=== PATIENT | male | born 1935 | race African-American/Black ===

== ENCOUNTER 2020-06-28 06:51 | Outpatient (CLI) | payer MEDICARE | END 2020-06-28 06:52 | disposition home or self-care (01) | LOC: LABBT 06:51 | PROVIDERS: ATTEND Orthopaedic Surgery | DX: Z01.818 Encounter for other preprocedural examination (principal); M16.12 Unilateral primary osteoarthritis, left hip | CPT/HCPCS: 80048; 81001; 85025; 85610; 86850; 86900; 86901; 87635; 93005; 93010; U0003 ==

== ENCOUNTER 2020-06-28 14:00 | Inpatient (IN) | payer OTHER ==
[2020-06-28 17:30] LABS: Anion Gap 13 mmol/L (10-20); BUN (Urea Nitrogen) 17 mg/dL (8.4-25.7); Calc. Creatinine Clearance 0 mL/min (70-130); Calcium 9.3 mg/dL (7.8-10.44); Carbon Dioxide 28 mmol/L (23-31); Chloride 105 mmol/L (98-107); Glucose 110 mg/dL (83-110); Potassium 4.1 mmol/L (3.5-5.1); Sodium 142 mmol/L (136-145)
[2020-06-28 17:42] LABS: Clarity Clear (Clear); Leukocyte 25 (Negative); Nitrite Negative (Negative); Specific Gravity, Urine 1.015 (1.002-1.036)
[2020-06-28 17:43] LABS: Bilirubin Negative (Negative); Blood, Urine Negative (Negative); Glucose, Urine (Dipstick) Normal (Negative); Ketone, Urine Negative (Negative); Protein, Urine (Dipstick) 30 mg/dl (Neg-Trace); Urobilinogen Normal mg/dL (Less than 2)
[2020-06-28 17:46] LABS: RBC/HPF 0-3 HPF (0-3)
[2020-06-28 17:49] LABS: Bacteria/HPF Rare-Few HPF (None Seen)
[2020-06-28 19:26] LABS: Prothrombin Time 10.3 sec (9.5-12.1)
[2020-06-28 20:33] LABS: #Eosinphils 0.1 10x3/uL (0.0-0.5); #Monocytes 0.2 10x3/uL (0.0-1.1); #Neutrophils 1.5 10x3/uL (1.5-8.4); %Basophils 0.7 % (0.0-2.0); %Lymphocytes 39.8 % (18.0-47.0); %Monocytes 7.9 % (0.0-10.0); %Neutrophils 49.3 % (40.0-75.0); Hemoglobin 11.9 g/dL (14.0-18.0); Mean Corpuscular HGB CONC 30.8 G/DL (32.0-36.0); Mean Corpuscular Hemoglobin 26.4 PG (27.0-33.0); Mean Corpuscular Volume 85.8 fl (80.0-100.0); Mean Platelet Volume 11.8 fl (7.4-10.4); Platelet Count 154 10x3/uL (130-400); RBC Distribution Width 14.8 % (11.5-14.5)
[2020-06-29 13:15] LABS: SARS-CoV-2 MS2 Positive; SARS-CoV-2 N Gene Negative; SARS-CoV-2 S Gene Negative; SARS-CoV-2 by NAA Not Detected (NotDetected); SARS-CoV-2 orf1ab Negative
--- NOTE | 2020-06-29 13:51 | HP ---
HISTORY OF PRESENT ILLNESS: The patient is an 85-year-old male with a several-day history of progressive pain in the left hip without injury. He has had progressive symptoms despite rest, restriction of activities, use of a cane, and anti-inflammatory medications. His pain is now interfering with day-to-day activities including walking, getting dressed, and sleeping. His surgery was initially scheduled at the [facility] in [place] in March of last year, but it was canceled and he would defer to have further treatment here. PAST HISTORY: 1. History of hypertension. 2. Seasonal allergies. CURRENT MEDICATIONS: Include: 1. Calcium. 2. Multivitamins. 3. Lisinopril. 4. Hydrochlorothiazide. 5. Metoprolol. 6. Potassium. 7. Flomax. 8. Saw [place]. 9. [place] bil[place]. 10. Fish oil. ALLERGIES: HE HAS NO KNOWN ALLERGIES. FAMILY HISTORY: Otherwise unremarkable. SOCIAL HISTORY: Otherwise unremarkable. REVIEW OF SYSTEMS: Otherwise unremarkable. PAST SURGICAL HISTORY: The patient has had previous spine surgery in 2013. PHYSICAL EXAMINATION: GENERAL: A healthy male. HEENT: Unremarkable. NECK: Supple. CHEST: Clear. HEART: Regular rate and rhythm. ABDOMEN: Soft and nontender. RECTAL AND GENITAL: Deferred. EXTREMITIES: Pertinent findings of the left hip. There is no point tenderness. There is a left antalgic gait. There is decreased range of motion of the left hip and groin, pain with internal rotation. Neurovascular exam is intact. Leg lengths were equal. DIAGNOSTIC STUDIES: X-rays of the left hip reveal severe degenerative arthritis with no joint space remaining. There are mild vascular calcifications. There was moderately severe DJD of the right hip. IMPRESSION: 1. Degenerative arthritis of both hips, left greater than right. 2. History of hypertension. PLAN: Left total hip replacement. The nature of the surgery, length of recovery, and potential complications, such as infection, loss of motion, incomplete relief, neurovascular injury, thromboembolic phenomena, leg-length discrepancy, possible transfusion, and possible need for revision have been discussed in detail. Job ID: [id number]
[2020-06-30 13:44] VITALS: BMI 34.2
[2020-07-03] MEDS ORDERED: Vancomycin 1.5 GRAM/300 ML BAG ONE (06:56)
[2020-07-03] MEDS ORDERED: Tranexamic Acid 1,000 MG/10 ML VIAL ONE ×2 (06:56→12:23)
[2020-07-03] MEDS ORDERED: Sodium Chloride 0.9% 100 ML ONE ×2 (06:56→12:20)
[2020-07-03] MEDS ORDERED: Midazolam HCl 2 mg/2 ml Vial ONE (07:54)
[2020-07-03] MEDS ORDERED: Fentanyl 100 MCG/2 ML VIAL ONE ×2 (07:55→09:43)
[2020-07-03] MEDS ORDERED: Hydrocerin (Eucerin) Cream 120 gm Jar TOP PRN (09:00)
[2020-07-03] MEDS ORDERED: Ondansetron PF 4 MG/2 ML Vial IVP PRN ×2 (09:00→12:20)
[2020-07-03] MEDS ORDERED: Promethazine HCl 25 MG SUPP PR PRN (09:00)
[2020-07-03] MEDS ORDERED: HYDROcodone/Acetaminophen 5/325 mg Tablet PO PRN ×2 (09:00)
[2020-07-03] MEDS ORDERED: Bupivacaine 0.25% 10 ML VIAL EPIDURAL PRN (09:00)
[2020-07-03] MEDS ORDERED: diphenhydrAMINE 50 MG/ML VIAL IM PRN (09:00)
[2020-07-03] MEDS ORDERED: diphenhydrAMINE 50 MG/ML VIAL IVP PRN (09:00)
[2020-07-03] MEDS ORDERED: Naloxone HCl 0.4 mg/ml Vial IVP PRN (09:00)
[2020-07-03] MEDS ORDERED: traMADol HCl 50 MG TAB PO PRN ×3 (09:00→12:20)
[2020-07-03] MEDS ORDERED: Promethazine HCl 25 MG/ML VIAL IM PRN ×2 (09:00→12:01)
[2020-07-03] MEDS ORDERED: Zolpidem Tartrate 5 MG TAB PO PRN ×2 (09:00→12:20)
[2020-07-03] MEDS ORDERED: diphenhydrAMINE 25 MG CAP PO PRN ×2 (09:00→12:20)
[2020-07-03] MEDS ORDERED: Naloxone HCl 0.4 mg/ml Vial IV PRN (09:00)
[2020-07-03] MEDS ORDERED: Bupivacaine 0.25% HCL 30 ML VIAL ONE (09:45)
[2020-07-03] MEDS ORDERED: Lidocaine 1.5% w/Epi 1:200K 30 ML VIAL (Epid Use) ONE (09:53)
[2020-07-03] MEDS ORDERED: Rocuronium Bromide 10 MG/ML (10ML VIAL) ONE (09:53)
[2020-07-03] MEDS ORDERED: Dexamethasone 20 MG/5 ML VIAL ONE (09:53)
[2020-07-03] MEDS ORDERED: Lidocaine 1% PF 5 ML VIAL ONE (09:53)
[2020-07-03] MEDS ORDERED: Glycopyrrolate 0.2 MG/ML 5 ML SYRINGE ONE (09:53)
[2020-07-03] MEDS ORDERED: ePHEDrine 50 MG/ML VIAL ONE (09:53)
[2020-07-03] MEDS ORDERED: PROPOFOL 200 MG/20 ML VIAL ONE (09:53)
[2020-07-03] MEDS ORDERED: Labetalol HCl 100 MG/20 ML VIAL ONE (09:53)
[2020-07-03] MEDS ORDERED: Ondansetron PF 4 MG/2 ML Vial ONE (09:53)
[2020-07-03] MEDS ORDERED: Ketorolac Tromethamine 30 MG/ML VIAL IVP SCH (12:00)
[2020-07-03] MEDS ORDERED: Tranexamic Acid 1,000 MG in Sodium Chloride 0.9% 100 ML IVPB SCH ×2 (12:00→12:20)
[2020-07-03] MEDS ORDERED: Ondansetron HCl/PF 4 MG/2 ML Vial IVP PRN (12:01)
[2020-07-03] MEDS ORDERED: Promethazine HCl 25 MG/ML VIAL SLOW IVP PRN ×2 (12:01→12:20)
[2020-07-03] MEDS ORDERED: Fentanyl 100 MCG/2 ML VIAL SLOW IVP PRN ×2 (12:20)
[2020-07-03] MEDS ORDERED: HYDROcodone/Acetaminophen 10/325 mg Tablet PO PRN ×2 (12:20)
[2020-07-03] MEDS ORDERED: Sodium Chloride 0.9% 1,000 ML IV SCH (12:20)
[2020-07-03] MEDS ORDERED: Acetaminophen 325 MG TAB PO PRN (12:20)
--- NOTE | 2020-07-03 13:00 | RAD ---
XR Hip Lt 2-3 View INDICATION: Postop left hip COMPARISON: Prior exam dated June 01, 2020 FINDINGS: Bones: No acute osseous abnormality. Bone mineralization appears within normal limits. Hip joint: Since the comparison examination there is been interval performance of a left total hip ar throplasty. The prosthetic components project in the expected position without gross evidence of complication. There is scattered intra-articular and periarticular soft tissue gas consistent with th e patient's postoperative state SI joints and symphysis pubis: There is mild degenerative change of a left SI joint which is stable. Intrapelvic contents: Visualized bowel gas pattern is within normal limits. Surrounding soft tissues: As above IMPRESSION: 1. Interval left total hip arthroplasty.
[2020-07-03] MEDS ORDERED: Lisinopril 20 MG TAB PO SCH (17:45)
[2020-07-03] MEDS: Ketorolac Tromethamine 30 MG/ML VIAL IVP SCH (17:45)
[2020-07-03] MEDS ORDERED: Hydrochlorothiazide 25 MG TAB PO SCH (17:45)
[2020-07-03] MEDS: CEFAZOLIN 2 GM in Premix Bag 1 BAG IVPB SCH (18:35)
[2020-07-03] MEDS ORDERED: Vancomycin HCl 1.5 GM in Sodium Chloride 0.9% 250 ML 300 ML IVPB SCH (20:00)
[2020-07-03] MEDS: Senokot S 8.6-50 MG TAB PO SCH (20:32)
[2020-07-03] MEDS: Ferrous Gluconate 324 MG TAB PO SCH (20:32)
--- NOTE | 2020-07-03 20:44 | RAD ---
Exam: Chest one view HISTORY:Evaluate for congestive heart failure. Patient requiring oxygen. Comparison: 02/22/2019 FINDINGS: Cardiac silhouette: Normal Aorta: Atherosclerotic Pulmonary vessels: Normal Costophrenic angles: Clear LUNGS: No masses or consolidation. Pneumothorax: None Osseous abnormalities: None IMPRESSION: 1. Atherosclerosis 2. Chronic lung parenchymal changes. No acute cardiopulmonary process
--- NOTE | 2020-07-03 20:57 | CON ---
DATE OF CONSULTATION: 07/03/2020 TIME OF ASSESSMENT: 1899. REASON FOR CONSULTATION: Medical management. CHIEF COMPLAINT: None. HISTORY OF PRESENT ILLNESS: Mr. Reed is an 85-year-old gentleman who was admitted to the hospital for a left total hip replacement which was done earlier today. The patient states his pain is well controlled at the moment. States that there was an issue earlier today due to an elevated blood pressure. He says he has been off his blood pressure medicines for the last 3 days, because he accidentally misinterpreted instructions to hold his medications in preparation for surgery. Denies having any associated headache, vision changes, nausea, or vomiting. Currently, his blood pressure is 201/68. His home medications have been restarted by his primary care team. Currently, he is eating dinner and is tolerating food intake well. He has no complaints at this present time. PAST MEDICAL HISTORY: 1. Hypertension. 2. Seasonal allergies. 3. BPH. 4. Chronic diastolic heart failure. PAST SURGICAL HISTORY: 1. Lumbar surgery in 2013. 2. Status post left total hip replacement done earlier today. SOCIAL HISTORY: The patient reports drinking 3 to 4 times a week. States he will drink 2 or 3 shots of liquor including bourbon or gin. Denies any tobacco use or drug use. FAMILY HISTORY: Noncontributory. ALLERGIES: NO KNOWN DRUG ALLERGIES. CURRENT MEDICATIONS: 1. Aspirin 81 mg p.o. daily. 2. Vitamin D3/calcium carbonate 1 tablet p.o. daily. 3. Proscar 5 mg p.o. daily. 4. Hydrochlorothiazide 25 mg p.o. daily. 5. Lisinopril 20 mg p.o. daily. 6. Metoprolol succinate 25 mg p.o. daily. 7. Potassium chloride 10 mEq p.o. daily. 8. Flomax 0.8 mg p.o. at bedtime. PHYSICAL EXAMINATION: GENERAL: The patient appears well developed, well nourished, is in no acute distress. VITAL SIGNS: Temperature 97.4, HR 51, BP 152/60, RR 20, O2 saturation 95% on 2 L by nasal cannula. HEENT: Normocephalic and atraumatic. Pupils are equal, round, and reactive to light. Sclera icteric. Oropharynx is clear. NECK: Supple. LUNGS: Clear to auscultation bilaterally without any wheezes, rales, or rhonchi. CARDIAC: Regular rate and rhythm. ABDOMEN: Soft, nontender, nondistended. Normoactive bowel sounds present. No guarding or rigidity. No renal angle tenderness. EXTREMITIES: Mechanical SCDs in place. He has +1 pitting edema. NEUROLOGIC: Alert and oriented x3. SKIN: Warm and dry. LABORATORY DATA: Obtained on 06/28/2020. White cell count 3, hemoglobin 11.9, hematocrit 38.6, platelets 154, neutrophils 49.3%. BMP unremarkable. Urinalysis showed 25 leukocyte esterase, 4 to 6 white blood cells, and 4 to 6 epithelial cells, 30 of protein, otherwise negative. COVID testing done on 06/28/2020 was negative. IMAGING DATA: Hip x-ray obtained today, 07/03/2020, showed interval left total hip arthroplasty. IMPRESSION AND PLAN: Mr. Reed is an 85-year-old gentleman who is status post left total hip replacement, who has been referred to us for medical management of the followin. Hypertension. Blood pressure uncontrolled due to missing his antihypertensives for the last 3 days. Home medications have been restarted and we will give hydralazine p.r.n. for systolic blood pressure above 180. The patient is asymptomatic at present. We will obtain repeat laboratory studies including CBC, CMP, BMP, and magnesium. 2. History of diastolic heart failure. Currently has fluids running at 100 an hour, which we will decrease to 65 in light of +1 pitting edema and history of heart failure. We will check BNP with routine labs. Sats 95 on 2 L with no crackles on auscultation, but does have diminished breath sounds bilaterally. We will obtain a baseline chest x-ray. Continue to monitor O2 saturations. 3. BPH. Proscar and Flomax have been restarted. No urinary complaints. 4. Status post left hip replacement. Pain controlled. Continue as per Ortho team. 5. Code status full. 6. Gastrointestinal prophylaxis with famotidine. 7. Deep venous thrombosis prophylaxis with mechanical SCDs. Case discussed with attending who agrees with plan of care as described above. Thank you for this consultation. We will continue to follow this patient with you. Job ID: [id number]
[2020-07-03] MEDS: Tamsulosin HCl 0.4 MG CAP PO SCH (21:01)
[2020-07-03] MEDS: Famotidine 20 MG TAB PO SCH (21:01)
[2020-07-03] MEDS: Aspirin 81 mg Enteric Coated Tablet PO SCH (21:01)
[2020-07-03 22:27] LABS: #Lymphocytes 0.4 thou/uL (1.20-3.40); #Monocytes 0.4 thou/uL (0.11-0.59); %Eosinophils 0.1 % (0.0-10.0); %Lymphocytes 7.5 % (21.0-51.0); %Monocytes 6.4 % (0.0-10.0); Hemoglobin 10.6 g/dL (14.0-18.0); Mean Corpuscular HGB CONC 31.3 g/dL (32.0-36.0); Mean Corpuscular Hemoglobin 27.3 pg (27.0-31.0); Mean Corpuscular Volume 87.3 fL (78.0-98.0); Mean Platelet Volume 9.5 fL (7.4-10.4); Platelet Count 117 thou/uL (130-400); RBC Distribution Width 13.7 % (11.5-14.5); Red Blood Cell (RBC) Count 3.89 mill/uL (4.70-6.10); White Blood Cell (WBC) Count 5.8 thou/uL (4.8-10.8)
[2020-07-03 22:59] LABS: ALT (SGPT) 13 U/L (8-55); AST (SGOT) 22 U/L (5-34); Albumin 3.4 g/dL (3.4-4.8); Alkaline Phosphatase 43 U/L (40-110); Anion Gap 11 mmol/L (10-20); BUN (Urea Nitrogen) 15 mg/dL (8.4-25.7); Bilirubin, Total 0.3 mg/dL (0.2-1.2); Calc. Creatinine Clearance 73 mL/min (70-130); Carbon Dioxide 28 mmol/L (23-31); Chloride 102 mmol/L (98-107); Magnesium 1.9 mg/dL (1.6-2.6); Potassium 3.8 mmol/L (3.5-5.1); Protein, Total 6.4 g/dL (5.8-8.1); Sodium 137 mmol/L (136-145)
[2020-07-03 23:07] LABS: Calcium 8.2 mg/dL (7.8-10.44); Glucose 163 mg/dL (83-110)
[2020-07-04] MEDS: Ketorolac Tromethamine 30 MG/ML VIAL IVP SCH ×4 (02:12→18:20)
[2020-07-04] MEDS: CEFAZOLIN 2 GM in Premix Bag 1 BAG IVPB SCH (02:14)
[2020-07-04] MEDS ORDERED: Cepastat Lozenges 1 LOZ PO PRN (02:24)
[2020-07-04] MEDS: Sodium Chloride 0.9% 1,000 ML IV SCH ×2 (04:41→10:56)
[2020-07-04] MEDS: Fentanyl 5 mcg/Bup 0.075% Cadd 100 ML EPIDURAL SCH ×2 (05:27→21:14)
[2020-07-04 06:07] LABS: Hemoglobin 9.7 g/dL (14.0-18.0); Mean Corpuscular Hemoglobin 27.6 pg (27.0-31.0); Mean Corpuscular Volume 86.3 fL (78.0-98.0); Mean Platelet Volume 10.4 fL (7.4-10.4); Platelet Count 114 thou/uL (130-400); RBC Distribution Width 13.7 % (11.5-14.5); Red Blood Cell (RBC) Count 3.53 mill/uL (4.70-6.10); White Blood Cell (WBC) Count 4.8 thou/uL (4.8-10.8)
[2020-07-04] MEDS: Ferrous Gluconate 324 MG TAB PO SCH ×2 (09:40→19:44)
[2020-07-04] MEDS: Multivitamin W/ Minerals 1 TAB PO SCH (09:40)
[2020-07-04] MEDS: Senokot S 8.6-50 MG TAB PO SCH ×2 (09:40→19:44)
[2020-07-04] MEDS: Lisinopril 20 MG TAB PO SCH (09:41)
[2020-07-04] MEDS: Aspirin 81 mg Enteric Coated Tablet PO SCH ×2 (09:41→19:44)
[2020-07-04] MEDS: Famotidine 20 MG TAB PO SCH ×2 (09:41→19:44)
[2020-07-04] MEDS: Calcium Carbonate 600 MG + Vit D TAB PO SCH (09:42)
[2020-07-04] MEDS: Potassium Chloride 10 MEQ TAB PO SCH (09:42)
[2020-07-04] MEDS: Hydrochlorothiazide 25 MG TAB PO SCH (09:42)
[2020-07-04] MEDS: Finasteride 5 MG TAB PO SCH (09:44)
--- NOTE | 2020-07-04 11:06 | OP ---
DATE OF PROCEDURE: 07/03/2020 LOGISTICS PLANNER: YEIMI Bates. The bricklayer's assistant co-surgeon was present through the entire procedure and was responsible for providing exposure, tissue retraction, and any necessary limb or tissue manipulation required to obtain necessary reduction or hardware placement. The bricklayer's assistant co-surgeon also provided bleeding control, tissue closure, and suturing in conjunction with the primary surgeon. ANESTHESIA: General plus epidural. PREOPERATIVE DIAGNOSIS: Degenerative arthritis, left hip. POSTOPERATIVE DIAGNOSIS: Degenerative arthritis, left hip. PROCEDURE PERFORMED: Left total hip replacement with uncemented Trident II Tritanium acetabular shell 56 mm with X3 polyethylene insert and uncemented Accolade II femoral stem size 5 with 132-degree neck angle trunnion and +5 mm delta ceramic 36 mm femoral head. DESCRIPTION OF PROCEDURE: After satisfactory anesthesia was induced in supine position, sequential compression device was placed on the nonoperative leg throughout the procedure. The patient was then placed in lateral decubitus position and this position held with hip positioning device. The patient's left hip was then prepped and draped in routine sterile fashion. The hip was approached through a lateral curvilinear incision centered over the greater trochanter, carried down through the subcutaneous tissues, and bleeding points were controlled with Bovie cautery. IT band and gluteal fascia were split inline with skin incision. A direct lateral approach to the hip joint was accomplished by dividing the anterior third of the gluteus medius and minimus tendons with Bovie cautery and reflecting this as a single flap anteriorly and medially along with the vastus lateralis. Anterior capsulectomy was performed. The hip was dislocated anteriorly. There was marked degenerative arthritis of the hip and marked left hip synovitis. The femoral neck was osteotomized with an oscillating saw using a trial prosthesis as a guide. The acetabulum was exposed and cleaned of all soft tissue and debris and two cysts that were curetted. The acetabulum was then reamed in sequence down to bleeding subchondral bone to a total of 56 mm. It was felt that a 56 mm Trident Tritanium outer shell could be placed in a press-fit fashion. Morselized bone graft obtained from reaming the acetabulum was placed in the acetabular cysts and the permanent shell then hammered into position, there was good fit and stability. The permanent X3 polyethylene liner was then snapped in position and the proximal femur exposed and opened with a box osteotome and then rasped in sequence to accept a #5 Accolade II femoral rasp. 132-degree angle trunnion was placed on the rasp and trial reduction with +5 mm 36 mm head gave appropriate size, fit, and stability. The hip was again dislocated anteriorly and the trial components were removed. The permanent #5 Accolade femoral stem was then hammered in position. There was again good fit and stability. The permanent +5 mm neck length 36 mm delta ceramic femoral head was then placed on the trunnion, the hip again reduced and found to be stable. The wound was copiously irrigated with pulsatile lavage. The abductors were repaired with interrupted #2 Vicryl. IT band and gluteal fascia were closed with interrupted #2 Vicryl and running #2 Quill. Subcutaneous tissues were closed with a running 0 Quill suture and the skin closed with running subcuticular 3-0 Monoderm and SurgiSeal skin adhesive. Sterile dressing was applied and the patient turned to supine position and a pillow placed between his legs. Sequential compression device was applied to his operated leg and he was awakened, taken to the recovery room in stable condition. There were no apparent intraoperative complications. The estimated blood loss was 350 mL. Job ID: [id number] [facility]
--- NOTE | 2020-07-04 16:36 | PDOC.HOSPP ---
- Subjective Encounter Date: 07/04/20 Encounter Time: 12:30 Subjective: pt up in bed no complains - Objective Vital Signs & Weight: Vital Signs (12 hours) Temp Pulse Resp BP BP Pulse Ox 07/04/20 14:58 98.5 F 72 16 165/70 H 95 07/04/20 10:52 98.2 F 70 14 135/63 96 07/04/20 09:41 153/72 H 07/04/20 07:02 98.4 F 74 16 153/72 H 94 L Weight Weight 225 lb I&O: 07/03/20 07/04/20 07/05/20 06:59 06:59 06:59 Intake Total 1490 Output Total 650 Balance 840 Result Diagrams: 07/04/20 05:18 07/03/20 22:13 Hospitalist ROS - Review of Systems Cardiovascular: denies: chest pain, palpitations, orthopnea, paroxysmal noc. dyspnea, edema, light headedness, other Gastrointestinal: denies: nausea, vomiting, abdominal pain, diarrhea, constipation, melena, hematochezia, other Genitourinary: denies: dysuria, frequency, incontinence, hematuria, retention, other - Medication Medications: Active Medications Generic Name Dose Route Start Last Admin Trade Name Freq PRN Reason Stop Dose Admin Hydrocodone Bitart/Acetaminophen 2 tab 07/03/20 09:00 07/04/20 11:31 Hydrocodone/Acetaminophen 5/325 Mg Tablet PO 2 tab Q4H PRN Administration For Moderate Pain 4-6 Aspirin 81 mg 07/03/20 21:00 07/04/20 09:41 Aspirin 81 Mg Enteric Coated Tablet PO 81 mg BID YARA Administration Calcium/Vitamin D 1 tab 07/04/20 09:00 07/04/20 09:42 Calcium Carbonate 600 Mg + Vit D Tab PO 1 tab DAILY YARA Administration Famotidine 20 mg 07/03/20 21:00 07/04/20 09:41 Famotidine 20 Mg Tab PO 20 mg BID YARA Administration Ferrous Gluconate 324 mg 07/03/20 21:00 07/04/20 09:40 Ferrous Gluconate 324 Mg Tab PO 324 mg BID YARA Administration Finasteride 5 mg 07/04/20 09:00 07/04/20 09:44 Finasteride 5 Mg Tab PO 5 mg DAILY YARA Administration Hydrochlorothiazide 25 mg 07/04/20 09:00 07/04/20 09:42 Hydrochlorothiazide 25 Mg Tab PO 25 mg DAILY YARA Administration Fentanyl Citrate 100 mls @ 0 mls/hr 07/03/20 09:00 07/04/20 05:27 Fentanyl/Bupivacaine EPIDURAL 100 mls INF YARA Administration As Directed Sodium Chloride 1,000 mls @ 65 mls/hr 07/03/20 20:01 07/04/20 10:56 Normal Saline 0.9% IV Not Given .[id number] YARA Iron/Minerals/Multivitamins 1 tab 07/04/20 09:00 07/04/20 09:40 Multivitamin W/ Minerals 1 Tab PO 1 tab DAILY YARA Administration Ketorolac Tromethamine 15 mg 07/03/20 18:00 07/04/20 11:28 Ketorolac Tromethamine 30 Mg/Ml Vial IVP 07/05/20 18:01 15 mg Q6HR YARA Administration Lisinopril 20 mg 07/04/20 09:00 07/04/20 09:41 Lisinopril 20 Mg Tab PO 20 mg QAM YARA Administration Metoprolol Succinate 25 mg 07/04/20 09:00 07/04/20 09:44 Metoprolol Succinate Xl 25 Mg Tab PO 25 mg DAILY YARA Administration Potassium Chloride 10 meq 07/04/20 09:00 07/04/20 09:42 Potassium Chloride 10 Meq Tab PO 10 meq DAILY YARA Administration Senna/Docusate Sodium 2 tab 07/03/20 21:00 07/04/20 09:40 Senokot S 8.6-50 Mg Tab PO 2 tab BID YARA Administration Tamsulosin HCl 0.8 mg 07/03/20 21:00 07/03/20 21:01 Tamsulosin Hcl 0.4 Mg Cap PO 0.8 mg HS YARA Administration - Exam Neck: negative: supple, symmetric, no JVD, no thyromegaly, no lymphadenopathy, n o carotid bruit, JVD Heart: negative: RRR, no murmur, no gallops, no rubs, normal peripheral pulses, irregular, diminshed peripheral pulses, murmur present, II/IV, III/IV Respiratory: negative: CTAB, no wheezes, no rales, no ronchi, normal chest expa nsion, no tachypnea, normal percussion, rales, rhonchi, tachypneic, wheezes Hosp A/P (1) BPH (benign prostatic hyperplasia) Code(s): N40.0 - BENIGN PROSTATIC HYPERPLASIA WITHOUT LOWER URINRY TRACT SYMP Status: Chronic (2) CHF (congestive heart failure) Code(s): I50.9 - HEART FAILURE, UNSPECIFIED Status: Chronic (3) Hypertension Code(s): I10 - ESSENTIAL (PRIMARY) HYPERTENSION Status: Chronic (4) Status post left hip replacement Code(s): Z96.642 - PRESENCE OF LEFT ARTIFICIAL HIP JOINT Status: Acute - Plan will continue home meds. Dvt ppx and pain management per ortho.
[2020-07-04] MEDS: Tamsulosin HCl 0.4 MG CAP PO SCH (19:44)
[2020-07-05] MEDS: Ketorolac Tromethamine 30 MG/ML VIAL IVP SCH ×4 (00:14→18:07)
[2020-07-05] MEDS: Sodium Chloride 0.9% 1,000 ML IV SCH (02:41)
[2020-07-05 05:15] LABS: Hemoglobin 9.8 g/dL (14.0-18.0); Mean Corpuscular HGB CONC 31.6 g/dL (32.0-36.0); Mean Corpuscular Hemoglobin 27.5 pg (27.0-31.0); Mean Corpuscular Volume 87.1 fL (78.0-98.0); Mean Platelet Volume 10.1 fL (7.4-10.4); Platelet Count 101 thou/uL (130-400); RBC Distribution Width 13.7 % (11.5-14.5); Red Blood Cell (RBC) Count 3.55 mill/uL (4.70-6.10); White Blood Cell (WBC) Count 5.9 thou/uL (4.8-10.8)
[2020-07-05] MEDS: Aspirin 81 mg Enteric Coated Tablet PO SCH ×4 (08:45→20:08)
[2020-07-05] MEDS: Potassium Chloride 10 MEQ TAB PO SCH ×3 (08:45→13:10)
[2020-07-05] MEDS: Famotidine 20 MG TAB PO SCH ×4 (08:45→20:08)
[2020-07-05] MEDS: Calcium Carbonate 600 MG + Vit D TAB PO SCH ×3 (08:45→13:10)
[2020-07-05] MEDS: Hydrochlorothiazide 25 MG TAB PO SCH ×3 (08:46→13:15)
[2020-07-05] MEDS: Multivitamin W/ Minerals 1 TAB PO SCH ×3 (08:46→13:10)
[2020-07-05] MEDS: Lisinopril 20 MG TAB PO SCH ×3 (08:46→20:09)
[2020-07-05] MEDS: Finasteride 5 MG TAB PO SCH ×3 (08:47→13:11)
[2020-07-05] MEDS: Ferrous Gluconate 324 MG TAB PO SCH ×4 (08:47→20:08)
[2020-07-05] MEDS: Senokot S 8.6-50 MG TAB PO SCH ×3 (10:01→13:10)
[2020-07-05] MEDS: hydrALAZINE 20 MG/ML VIAL SLOW IVP PRN ×2 (12:12→23:00)
--- NOTE | 2020-07-05 13:47 | CT ---
EXAM: CT brain without contrast HISTORY: Altered mental status with confusion COMPARISON: None TECHNIQUE: Multiple contiguous axial images were obtained and a CT of the brain without contrast. FINDINGS: There are scattered hypodensities in the subcortical and periventricular white matter consi stent with small vessel ischemic disease. Bilateral basal ganglia calcifications are seen. There is no evidence of hydrocephalus, intracranial hemorrhage, or extra-axial fluid collection. The calvarium and overlying soft tissues are unremarkable. The visualized paranasal sinuses and masto id air cells are well aerated. IMPRESSION: No evidence of acute intracranial abnormality
--- NOTE | 2020-07-05 16:32 | PDOC.HOSPP ---
- Subjective Encounter Date: 07/05/20 Encounter Time: 12:30 Subjective: Patient sitting up in bed with brother at bedside. Patient apparently was confused this a.m. he did not take his blood pressure medications. - Objective Vital Signs & Weight: Vital Signs (12 hours) Temp Pulse Resp BP BP Pulse Ox 07/05/20 13:15 193/89 H 07/05/20 12:12 193/89 H 07/05/20 12:00 98.7 F 84 18 161/76 H 96 07/05/20 08:36 98.5 F 87 18 193/67 H 94 L 07/05/20 08:00 94 L Weight Admit Weight 225 lb Weight 225 lb I&O: 07/04/20 07/05/20 07/06/20 06:59 06:59 06:59 Intake Total 1490 1000 Output Total 650 1050 Balance 840 -50 Result Diagrams: 07/05/20 04:52 07/03/20 22:13 Hospitalist ROS - Review of Systems Respiratory: denies: cough, dry, shortness of breath, hemoptysis, SOB with excertion, pleuritic pain, sputum, wheezing, other Cardiovascular: denies: chest pain, palpitations, orthopnea, paroxysmal noc. dyspnea, edema, light headedness, other Gastrointestinal: denies: nausea, vomiting, abdominal pain, diarrhea, constipation, melena, hematochezia, other - Medication Medications: Active Medications Generic Name Dose Route Start Last Admin Trade Name Freq PRN Reason Stop Dose Admin Hydrocodone Bitart/Acetaminophen 2 tab 07/03/20 09:00 07/04/20 11:31 Hydrocodone/Acetaminophen 5/325 Mg Tablet PO 2 tab Q4H PRN Administration For Moderate Pain 4-6 Aspirin 81 mg 07/03/20 21:00 07/05/20 13:08 Aspirin 81 Mg Enteric Coated Tablet PO 81 mg BID YARA Administration Calcium/Vitamin D 1 tab 07/04/20 09:00 07/05/20 13:10 Calcium Carbonate 600 Mg + Vit D Tab PO 1 tab DAILY YARA Administration Famotidine 20 mg 07/03/20 21:00 07/05/20 13:09 Famotidine 20 Mg Tab PO 20 mg BID YARA Administration Ferrous Gluconate 324 mg 07/03/20 21:00 07/05/20 13:09 Ferrous Gluconate 324 Mg Tab PO 324 mg BID YARA Administration Finasteride 5 mg 07/04/20 09:00 07/05/20 13:11 Finasteride 5 Mg Tab PO 5 mg DAILY YARA Administration Hydralazine HCl 10 mg 07/03/20 19:56 07/05/20 12:12 Hydralazine 20 Mg/Ml Vial SLOW IVP 10 mg Q4H PRN Administration SBP Greater Than 180 Hydrochlorothiazide 25 mg 07/04/20 09:00 07/05/20 13:15 Hydrochlorothiazide 25 Mg Tab PO 25 mg DAILY YARA Administration Iron/Minerals/Multivitamins 1 tab 07/04/20 09:00 07/05/20 13:10 Multivitamin W/ Minerals 1 Tab PO 1 tab DAILY YARA Administration Ketorolac Tromethamine 15 mg 07/03/20 18:00 07/05/20 12:04 Ketorolac Tromethamine 30 Mg/Ml Vial IVP 07/05/20 18:01 15 mg Q6HR YARA Administration Lisinopril 20 mg 07/05/20 21:00 07/05/20 13:15 Lisinopril 20 Mg Tab PO 20 mg BID YARA Administration Metoprolol Succinate 25 mg 07/04/20 09:00 07/05/20 13:15 Metoprolol Succinate Xl 25 Mg Tab PO 25 mg DAILY YARA Administration Potassium Chloride 10 meq 07/04/20 09:00 07/05/20 13:10 Potassium Chloride 10 Meq Tab PO 10 meq DAILY YARA Administration Senna/Docusate Sodium 2 tab 07/03/20 21:00 07/05/20 13:10 Senokot S 8.6-50 Mg Tab PO 2 tab BID YARA Administration Sodium Chloride 10 ml 07/03/20 12:20 07/05/20 12:08 Flush - Normal Saline 10 Ml Syringe IVF 10 ml PRN PRN Administration Saline Flush Tamsulosin HCl 0.8 mg 07/03/20 21:00 07/04/20 19:44 Tamsulosin Hcl 0.4 Mg Cap PO 0.8 mg HS YARA Administration - Exam Neck: negative: supple, symmetric, no JVD, no thyromegaly, no lymphadenopathy, no carotid bruit, JVD Heart: negative: RRR, no murmur, no gallops, no rubs, normal peripheral pulses, irregular, diminshed peripheral pulses, murmur present, II/IV, III/IV Respiratory: negative: CTAB, no wheezes, no rales, no ronchi, normal chest expansion, no tachypnea, normal percussion, rales, rhonchi, tachypneic, wheezes Gastrointestinal: negative: soft, non-tender, non-distended, normal bowel sounds, no palpable masses, no hepatomegaly, no splenomegaly, no bruit, no guarding, no rigidity, tender to palpation, distended, diminished bowl sounds, voluntary guarding Hosp A/P (1) BPH (benign prostatic hyperplasia) Code(s): N40.0 - BENIGN PROSTATIC HYPERPLASIA WITHOUT LOWER URINRY TRACT SYMP Status: Chronic (2) CHF (congestive heart failure) Code(s): I50.9 - HEART FAILURE, UNSPECIFIED Status: Chronic (3) Hypertension Code(s): I10 - ESSENTIAL (PRIMARY) HYPERTENSION Status: Chronic (4) Status post left hip replacement Code(s): Z96.642 - PRESENCE OF LEFT ARTIFICIAL HIP JOINT Status: Acute - Plan will continue home meds. Dvt ppx and pain management per ortho. 07/05 patient was confused this morning. Currently he is oriented x3. Patient's acute confusion most likely secondary to delirium we will stop Benadryl. Will check CBC BMP and ammonia level. CT brain negative. Patient also drinks 3-4 drinks a week. Will start thiamine and folic acid. Refused take his blood pressure medications this morning however after speaking with him he did take his blood pressure medication. I would avoid Ativan or Benadryl on this patient
[2020-07-05 17:32] LABS: Anion Gap 11 mmol/L (10-20); BUN (Urea Nitrogen) 17 mg/dL (8.4-25.7); Calc. Creatinine Clearance 84 mL/min (70-130); Calcium 8.5 mg/dL (7.8-10.44); Carbon Dioxide 26 mmol/L (23-31); Chloride 103 mmol/L (98-107); Glucose 101 mg/dL (83-110); Potassium 3.7 mmol/L (3.5-5.1); Sodium 136 mmol/L (136-145)
[2020-07-05] MEDS: Tamsulosin HCl 0.4 MG CAP PO SCH (20:08)
[2020-07-06] MEDS: Senokot S 8.6-50 MG TAB PO SCH ×3 (03:00→20:47)
[2020-07-06] MEDS: Aspirin 81 mg Enteric Coated Tablet PO SCH ×2 (10:08→20:48)
[2020-07-06] MEDS: Calcium Carbonate 600 MG + Vit D TAB PO SCH (10:08)
[2020-07-06] MEDS: Lisinopril 20 MG TAB PO SCH ×2 (10:09→20:48)
[2020-07-06] MEDS: Ferrous Gluconate 324 MG TAB PO SCH ×2 (10:09→20:48)
[2020-07-06] MEDS: Hydrochlorothiazide 25 MG TAB PO SCH (10:09)
[2020-07-06] MEDS: Potassium Chloride 10 MEQ TAB PO SCH (10:10)
[2020-07-06] MEDS: Finasteride 5 MG TAB PO SCH (10:10)
[2020-07-06] MEDS: Multivitamin W/ Minerals 1 TAB PO SCH (10:10)
[2020-07-06] MEDS: Thiamine 100 MG TAB PO SCH (10:10)
[2020-07-06] MEDS: Famotidine 20 MG TAB PO SCH ×2 (10:14→20:48)
[2020-07-06 10:15] LABS: #Lymphocytes 0.9 thou/uL (1.20-3.40); #Monocytes 0.5 thou/uL (0.11-0.59); #Neutrophils 3.8 thou/uL (1.40-6.50); %Basophils 0.3 % (0.0-1.0); %Eosinophils 0.5 % (0.0-10.0); %Monocytes 9.7 % (0.0-10.0); %Neutrophils 72.4 % (42.0-75.0); Mean Corpuscular HGB CONC 32.2 g/dL (32.0-36.0); Mean Corpuscular Volume 86.9 fL (78.0-98.0); Platelet Count 105 thou/uL (130-400); RBC Distribution Width 13.7 % (11.5-14.5); Red Blood Cell (RBC) Count 3.58 mill/uL (4.70-6.10); White Blood Cell (WBC) Count 5.3 thou/uL (4.8-10.8)
--- NOTE | 2020-07-06 10:33 | RAD ---
PORTABLE CHEST: Date: 07/06/2020 HISTORY: Confusion. COMPARISON: 07/03/2020. FINDINGS: The lungs appear clear. No infiltrate or vascular congestion. Heart and mediastinum unremarkable. IMPRESSION: No acute process identified. POS: AGW
[2020-07-06 12:01] LABS: Bacteria/HPF None Seen HPF (None Seen); Bilirubin Negative (Negative); Blood, Urine 3+ (Negative); Clarity Clear (Clear); Glucose, Urine (Dipstick) Normal (Negative); Ketone, Urine Negative (Negative); Leukocyte 75 Leu/uL (Negative); Nitrite Negative (Negative); Protein, Urine (Dipstick) 70 mg/dL (Neg-Trace); RBC/HPF Greater than 50 HPF (0-3); Specific Gravity, Urine 1.014 (1.002-1.036); Squamous Epithelial 0-3 HPF (0-3); Urobilinogen Normal mg/dL (Less than 2); pH, Urine 6.5 (5.0-9.0)
[2020-07-06 12:03] LABS: Urine Culture Reflex Yes Yes
--- NOTE | 2020-07-06 15:04 | PDOC.HOSPP ---
- Subjective Encounter Date: 07/06/20 Encounter Time: 10:30 Subjective: pt up in bed oriented x3. - Objective Vital Signs & Weight: Vital Signs (12 hours) Temp Pulse Resp BP Pulse Ox 07/06/20 11:23 98.7 F 94 20 188/73 H 98 07/06/20 07:25 98.5 F 98 18 156/60 H 94 L Weight Admit Weight 225 lb Weight 225 lb I&O: 07/05/20 07/06/20 07/07/20 06:59 06:59 06:59 Intake Total 1000 240 Output Total 1050 2300 Balance -50 Result Diagrams: 07/06/20 09:53 07/05/20 16:51 Hospitalist ROS - Review of Systems Cardiovascular: denies: chest pain, palpitations, orthopnea, paroxysmal noc. dyspnea, edema, light headedness, other Gastrointestinal: denies: nausea, vomiting, abdominal pain, diarrhea, constipation, melena, hematochezia, other Genitourinary: denies: dysuria, frequency, incontinence, hematuria, retention, other - Medication Medications: Active Medications Generic Name Dose Route Start Last Admin Trade Name Freq PRN Reason Stop Dose Admin Hydrocodone Bitart/Acetaminophen 2 tab 07/03/20 09:00 07/04/20 11:31 Hydrocodone/Acetaminophen 5/325 Mg Tablet PO 2 tab Q4H PRN Administration For Moderate Pain 4-6 Aspirin 81 mg 07/03/20 21:00 07/06/20 10:08 Aspirin 81 Mg Enteric Coated Tablet PO 81 mg BID YARA Administration Calcium/Vitamin D 1 tab 07/04/20 09:00 07/06/20 10:08 Calcium Carbonate 600 Mg + Vit D Tab PO 1 tab DAILY YARA Administration Famotidine 20 mg 07/03/20 21:00 07/06/20 10:14 Famotidine 20 Mg Tab PO 20 mg BID YARA Administration Ferrous Gluconate 324 mg 07/03/20 21:00 07/06/20 10:09 Ferrous Gluconate 324 Mg Tab PO 324 mg BID YARA Administration Finasteride 5 mg 07/04/20 09:00 07/06/20 10:10 Finasteride 5 Mg Tab PO 5 mg DAILY YARA Administration Hydralazine HCl 10 mg 07/03/20 19:56 07/05/20 23:00 Hydralazine 20 Mg/Ml Vial SLOW IVP 10 mg Q4H PRN Administration SBP Greater Than 180 Hydrochlorothiazide 25 mg 07/04/20 09:00 07/06/20 10:09 Hydrochlorothiazide 25 Mg Tab PO 25 mg DAILY YARA Administration Iron/Minerals/Multivitamins 1 tab 07/04/20 09:00 07/06/20 10:10 Multivitamin W/ Minerals 1 Tab PO 1 tab DAILY YARA Administration Lisinopril 20 mg 07/05/20 21:00 07/06/20 10:09 Lisinopril 20 Mg Tab PO 20 mg BID YARA Administration Metoprolol Succinate 25 mg 07/04/20 09:00 07/06/20 10:09 Metoprolol Succinate Xl 25 Mg Tab PO 25 mg DAILY YARA Administration Potassium Chloride 10 meq 07/04/20 09:00 07/06/20 10:10 Potassium Chloride 10 Meq Tab PO 10 meq DAILY YARA Administration Senna/Docusate Sodium 2 tab 07/03/20 21:00 07/06/20 10:15 Senokot S 8.6-50 Mg Tab PO Not Given BID YARA Sodium Chloride 10 ml 07/03/20 12:20 07/05/20 12:08 Flush - Normal Saline 10 Ml Syringe IVF 10 ml PRN PRN Administration Saline Flush Tamsulosin HCl 0.8 mg 07/03/20 21:00 07/05/20 20:08 Tamsulosin Hcl 0.4 Mg Cap PO 0.8 mg HS YARA Administration Thiamine HCl 100 mg 07/06/20 09:00 07/06/20 10:10 Thiamine 100 Mg Tab PO 100 mg DAILY YARA Administration - Exam Neck: negative: supple, symmetric, no JVD, no thyromegaly, no lymphadenopathy, no carotid bruit, JVD Heart: negative: RRR, no murmur, no gallops, no rubs, normal peripheral pulses, irregular, diminshed peripheral pulses, murmur present, II/IV, III/IV Respiratory: negative: CTAB, no wheezes, no rales, no ronchi, normal chest expansion, no tachypnea, normal percussion, rales, rhonchi, tachypneic, wheezes Gastrointestinal: negative: soft, non-tender, non-distended, normal bowel sounds, no palpable masses, no hepatomegaly, no splenomegaly, no bruit, no guarding, no rigidity, tender to palpation, distended, diminished bowl sounds, voluntary guarding Hosp A/P (1) BPH (benign prostatic hyperplasia) Code(s): N40.0 - BENIGN PROSTATIC HYPERPLASIA WITHOUT LOWER URINRY TRACT SYMP Status: Chronic (2) CHF (congestive heart failure) Code(s): I50.9 - HEART FAILURE, UNSPECIFIED Status: Chronic (3) Hypertension Code(s): I10 - ESSENTIAL (PRIMARY) HYPERTENSION Status: Chronic (4) Status post left hip replacement Code(s): Z96.642 - PRESENCE OF LEFT ARTIFICIAL HIP JOINT Status: Acute - Plan will continue home meds. Dvt ppx and pain management per ortho. 07/05 patient was confused this morning. Currently he is oriented x3. Patient's acute confusion most likely secondary to delirium we will stop Benadryl. Will check CBC BMP and ammonia level. CT brain negative. Patient also drinks 3-4 drinks a week. Will start thiamine and folic acid. Refused take his blood pressure medications this morning however after speaking with him he did take his blood pressure medication. I would avoid Ativan or Benadryl on this patient. 07/06 we will start patient on a low-dose Seroquel. I spoke with patient's who states that at times he does forget things. We will start him on Norvasc due to elevated blood pressure. Will reorient patient. I still believe this is most likely acute delirium. UA does not appear to be infectious however culture has been sent. Chest x-ray appears normal.
[2020-07-06] MEDS ORDERED: Amlodipine 10 MG TAB PO SCH (15:15)
[2020-07-06] MEDS: Tamsulosin HCl 0.4 MG CAP PO SCH (20:47)
[2020-07-07] MEDS: hydrALAZINE 20 MG/ML VIAL SLOW IVP PRN ×2 (00:37→16:10)
[2020-07-07] MEDS ORDERED: Folic Acid 1 MG TAB PO SCH (09:00)
[2020-07-07] MEDS ORDERED: Amlodipine 10 MG TAB PO SCH (09:00)
[2020-07-07] MEDS: Hydrochlorothiazide 25 MG TAB PO SCH (09:08)
[2020-07-07] MEDS: Lisinopril 20 MG TAB PO SCH ×2 (09:09→20:00)
[2020-07-07] MEDS: Senokot S 8.6-50 MG TAB PO SCH ×2 (09:09→19:59)
[2020-07-07] MEDS: Finasteride 5 MG TAB PO SCH (09:10)
[2020-07-07] MEDS: Thiamine 100 MG TAB PO SCH (09:10)
[2020-07-07] MEDS: Multivitamin W/ Minerals 1 TAB PO SCH (09:10)
[2020-07-07] MEDS: Potassium Chloride 10 MEQ TAB PO SCH (09:10)
[2020-07-07] MEDS: Calcium Carbonate 600 MG + Vit D TAB PO SCH (09:10)
[2020-07-07] MEDS: Famotidine 20 MG TAB PO SCH ×2 (09:10→20:00)
[2020-07-07] MEDS: Ferrous Gluconate 324 MG TAB PO SCH ×2 (09:11→20:00)
[2020-07-07] MEDS: Aspirin 81 mg Enteric Coated Tablet PO SCH ×2 (09:11→20:00)
--- NOTE | 2020-07-07 16:08 | PDOC.HOSPP ---
- Subjective Encounter Date: 07/07/20 Encounter Time: 11:20 Subjective: Patient up in bed oriented x2. - Objective Vital Signs & Weight: Vital Signs (12 hours) Temp Pulse Pulse Resp BP BP BP 07/07/20 11:15 98.2 F 85 16 169/72 H 07/07/20 10:40 103 H 172/73 H 07/07/20 09:30 07/07/20 09:10 100 116/59 L 07/07/20 09:09 116/49 L 07/07/20 08:18 98.6 F 100 18 116/59 L Pulse Ox 07/07/20 11:15 98 07/07/20 10:40 07/07/20 09:30 96 07/07/20 09:10 07/07/20 09:09 07/07/20 08:18 96 Weight Admit Weight 225 lb Weight 225 lb I&O: 07/06/20 07/07/20 07/08/20 06:59 06:59 06:59 Intake Total 240 1040 Output Total 2300 1050 Balance -2059 Result Diagrams: 07/06/20 09:53 07/05/20 16:51 Hospitalist ROS - Review of Systems Cardiovascular: denies: chest pain, palpitations, orthopnea, paroxysmal noc. dyspnea, edema, light headedness, other Gastrointestinal: denies: nausea, vomiting, abdominal pain, diarrhea, constipation, melena, hematochezia, other Genitourinary: denies: dysuria, frequency, incontinence, hematuria, retention, other - Medication Medications: Active Medications Generic Name Dose Route Start Last Admin Trade Name Agustinq PRN Reason Stop Dose Admin Hydrocodone Bitart/Acetaminophen 1 tab 07/03/20 09:00 07/07/20 09:18 Hydrocodone/Acetaminophen 5/325 Mg Tablet PO 1 tab Q4H PRN Administration Mild Pain 1-3 Hydrocodone Bitart/Acetaminophen 2 tab 07/03/20 09:00 07/04/20 11:31 Hydrocodone/Acetaminophen 5/325 Mg Tablet PO 2 tab Q4H PRN Administration For Moderate Pain 4-6 Amlodipine Besylate 10 mg 07/07/20 09:00 07/07/20 09:10 Amlodipine 10 Mg Tab PO 10 mg DAILY YARA Administration Aspirin 81 mg 07/03/20 21:00 12/18/20 09:11 Aspirin 81 Mg Enteric Coated Tablet PO 81 mg BID YARA Administration Calcium/Vitamin D 1 tab 07/04/20 09:00 07/07/20 09:10 Calcium Carbonate 600 Mg + Vit D Tab PO 1 tab DAILY YARA Administration Famotidine 20 mg 07/03/20 21:00 07/07/20 09:10 Famotidine 20 Mg Tab PO 20 mg BID YARA Administration Ferrous Gluconate 324 mg 07/03/20 21:00 07/07/20 09:11 Ferrous Gluconate 324 Mg Tab PO 324 mg BID YARA Administration Finasteride 5 mg 07/04/20 09:00 07/07/20 09:10 Finasteride 5 Mg Tab PO 5 mg DAILY YARA Administration Folic Acid 1 mg 07/07/20 09:00 07/07/20 09:11 Folic Acid 1 Mg Tab PO 1 mg DAILY YARA Administration Hydralazine HCl 10 mg 07/03/20 19:56 07/07/20 00:37 Hydralazine 20 Mg/Ml Vial SLOW IVP 10 mg Q4H PRN Administration SBP Greater Than 180 Hydrochlorothiazide 25 mg 07/04/20 09:00 07/07/20 09:08 Hydrochlorothiazide 25 Mg Tab PO 25 mg DAILY YARA Administration Iron/Minerals/Multivitamins 1 tab 07/04/20 09:00 07/07/20 09:10 Multivitamin W/ Minerals 1 Tab PO 1 tab DAILY YARA Administration Lisinopril 20 mg 07/05/20 21:00 07/07/20 09:09 Lisinopril 20 Mg Tab PO 20 mg BID YARA Administration Metoprolol Succinate 25 mg 07/04/20 09:00 07/07/20 09:11 Metoprolol Succinate Xl 25 Mg Tab PO 25 mg DAILY YARA Administration Potassium Chloride 10 meq 07/04/20 09:00 07/07/20 09:10 Potassium Chloride 10 Meq Tab PO 10 meq DAILY YARA Administration Quetiapine Fumarate 12.5 mg 07/06/20 18:30 07/06/20 18:27 Quetiapine Fumarate 25 Mg Tab PO 12.5 mg 1830 YARA Administration Senna/Docusate Sodium 2 tab 07/03/20 21:00 07/07/20 09:09 Senokot S 8.6-50 Mg Tab PO 2 tab BID YARA Administration Sodium Chloride 10 ml 07/03/20 12:20 12/16/20 12:08 Flush - Normal Saline 10 Ml Syringe IVF 10 ml PRN PRN Administration Saline Flush Tamsulosin HCl 0.8 mg 07/03/20 21:00 07/06/20 20:47 Tamsulosin Hcl 0.4 Mg Cap PO 0.8 mg HS YARA Administration Thiamine HCl 100 mg 07/06/20 09:00 07/07/20 09:10 Thiamine 100 Mg Tab PO 100 mg DAILY YARA Administration - Exam Neck: negative: supple, symmetric, no JVD, no thyromegaly, no lymphadenopathy, no carotid bruit, JVD Heart: negative: RRR, no murmur, no gallops, no rubs, normal peripheral pulses, irregular, diminshed peripheral pulses, murmur present, II/IV, III/IV Respiratory: negative: CTAB, no wheezes, no rales, no ronchi, normal chest expansion, no tachypnea, normal percussion, rales, rhonchi, tachypneic, wheezes Gastrointestinal: negative: soft, non-tender, non-distended, normal bowel sounds, no palpable masses, no hepatomegaly, no splenomegaly, no bruit, no guarding, no rigidity, tender to palpation, distended, diminished bowl sounds, voluntary guarding Hosp A/P (1) BPH (benign prostatic hyperplasia) Code(s): N40.0 - BENIGN PROSTATIC HYPERPLASIA WITHOUT LOWER URINRY TRACT SYMP Status: Chronic (2) CHF (congestive heart failure) Code(s): I50.9 - HEART FAILURE, UNSPECIFIED Status: Chronic (3) Hypertension Code(s): I10 - ESSENTIAL (PRIMARY) HYPERTENSION Status: Chronic (4) Status post left hip replacement Code(s): Z96.642 - PRESENCE OF LEFT ARTIFICIAL HIP JOINT Status: Acute - Plan will continue home meds. Dvt ppx and pain management per ortho. 07/05 patient was confused this morning. Currently he is oriented x3. Patient's acute confusion most likely secondary to delirium we will stop Benadryl. Will check CBC BMP and ammonia level. CT brain negative. Patient also drinks 3-4 drinks a week. Will start thiamine and folic acid. Refused take his blood pressure medications this morning however after speaking with him he did take his blood pressure medication. I would avoid Ativan or Benadryl on this patient. 07/06 we will start patient on a low-dose Seroquel. I spoke with patient's who states that at times he does forget things. We will start him on Norvasc due to elevated blood pressure. Will reorient patient. I still believe this is most likely acute delirium. UA does not appear to be infectious however culture has been sent. Chest x-ray appears normal. 07/07 patient oriented x2 however has some cognitive impairment currently. Continues to be afebrile. Per nursing staff he did sleep last night so we will continue the Seroquel for now. Okay to be transferred to inpatient rehab. DVT prophylaxis per Ortho.
[2020-07-07] MEDS ORDERED: cloNIDine 0.1 MG TAB PO SCH (17:15)
[2020-07-07] MEDS: Tamsulosin HCl 0.4 MG CAP PO SCH (19:59)
[2020-07-07 22:28] VITALS: BP 151/70; TEMP 98.4
--- NOTE | 2020-07-08 05:57 | PQF ---
CLINICAL DOCUMENTATION CLARIFICATION FORM: Dear : Yin Duckworth Date / Time: 07/08/2020 05:57 Please exercise your independent, professional judgment in responding to the clarification form. Clinical indicators are provided on the bottom of this form for your review Please check appropriate box(es): [ ] Encephalopathy: Etiology: [ x ] Metabolic [ ] Hypertensive [ ] Toxic [ ] Unspecified [ ] Other (please specify) [ ] Transient Alteration of Awareness [ ] Other diagnosis, please specify [ ] Unable to determine Physician Signature: Date/Time: For continuity of documentation, please document condition throughout progress notes and discharge summary. Thank You. To be completed by CDI/Coding staff for physician review: Present Clinical Indicators - Signs / Symptoms / Labs Results and Location in Medical Record [x] Patient was confused PN 07/07 [x] Acute confusion most likely secondary to delirium PN 07/07 [x] BP: 07/0389=393/68 07/0552=138/89 07/0792=042/73 Vital Signs 07/03 Present Risk Factors Results and Location in Medical Record [x] 85 years old male Consult 07/03 [x] HTN Consult 07/03 [x] CHF Consult 07/03 [x] BPH PN 07/07 [x] s/p left WENCESLAO PN 07/07 Present Treatments Results and Location in Medical Record [x] Stop Benadryl PN 07/07 [x] IVF MAR 07/03 [x] Catapres 0.1mg oral MAR 07/07 [x] Amlodipine 10mg Oral SEP 29 CDS/Shake Table Operator Signature: Maude Flores Phone #: [phone] Date/Time: 07/18/2020 This is a permanent part of the Medical Record [facility]
== END 2020-07-07 22:00 | disposition swing bed (61) | DRG 469 ==
LOC: SJJU 07-03 06:37 → EDSTATUS 07-03 14:00 → SURG B 07-03 16:07
PROVIDERS: ADMIT Orthopaedic Surgery; ATTEND Orthopaedic Surgery
PROC: 0SRB04A Replacement of Left Hip Joint with Ceramic on Polyethylene Synthetic Substitute, Uncemented, Open Approach (ICD-10-PCS; principal; 2020-07-03)
DX: M16.12 Unilateral primary osteoarthritis, left hip (principal); G93.41 Metabolic encephalopathy; I50.32 Chronic diastolic (congestive) heart failure; Z20.828 Contact with and (suspected) exposure to other viral communicable diseases; I11.0 Hypertensive heart disease with heart failure; N40.0 Benign prostatic hyperplasia without lower urinary tract symptoms; J30.2 Other seasonal allergic rhinitis; Z79.899 Other long term (current) drug therapy; Z86.19 Personal history of other infectious and parasitic diseases
CPT/HCPCS: 36415; 70450; 71045; 80048; 80053; 81001; 82140; 83735; 83880; 85025; 85027; 85610; 86850; 86900; 86901; 87081; 87086; 87635; J0360; J0690; J1100; J1885; J2001; J2250; J2405; J2704; J3010; J3370; J3490; S0020; U0003